=== PATIENT | female | born 1935 | race Caucasian/White ===

== ENCOUNTER 2017-04-10 08:10 | Outpatient (CLI) | payer MEDICARE ==
--- NOTE | 2017-04-14 15:43 | MMO ---
MAMMOGRAM DIGITAL SCREENING BILATERAL: DATE: 04/10/17 HISTORY: 81-year-old female for routine bilateral screening mammogram. COMPARISON: 03/10/14, 03/23/15, and 03/29/16. TECHNIQUE: Digital mammographic views. Computer-aided detection (CAD) utilized. FINDINGS: There are scattered areas of fibroglandular density. There is no evidence of suspicious mass, suspicious calcifications, or architectural distortion. The re is no significant interval change since the prior mammogram. IMPRESSION: 1. BIRADS 1 - Negative. 2. Recommendation: routine bilateral annual screening mammogram (unless the patient develops suspici ous clinical findings that would warrant earlier imaging follow up). yvonne [] POS: [facility]
== END 2017-04-10 08:11 | disposition home or self-care (01) ==
LOC: SCSMAMMO 08:10
PROVIDERS: ATTEND Family Medicine
DX: Z12.31 Encounter for screening mammogram for malignant neoplasm of breast (principal)
CPT/HCPCS: 77067

== ENCOUNTER 2018-04-22 07:54 | Outpatient (CLI) | payer MEDICARE | END 2018-04-22 07:55 | disposition home or self-care (01) | LOC: BICMAMMO 07:54 | PROVIDERS: ATTEND Family Medicine | DX: Z12.31 Encounter for screening mammogram for malignant neoplasm of breast (principal) | CPT/HCPCS: 77063; 77067 ==

== ENCOUNTER 2018-05-29 08:20 | Outpatient (CLI) | payer MEDICARE ==
--- NOTE | 2018-05-29 10:05 | CT ---
CT ABDOMEN AND PELVIS WITH AND WITHOUT IV CONTRAST: Date: 05-29-18 History: Hematuria. Comparison: None available. FINDINGS: The lung bases are clear. Post-surgical changes related to cholecystectomy are noted. There is an exophytic 3.9 cm fluid attenuation cystic lesion anterior aspect mid portion left kidney compatible with a cyst. The kidneys otherwise have a normal CT appearance bilaterally. No enhancing r enal mass is seen. No renal or ureteral calculi are seen bilaterally and there is no hydronephrosis p resent. The urinary bladder is incompletely distended. However, there is suggestion of increased density mass and on the delayed phase of imaging this area demonstrates lower attenuation in relation to the carlee cent contrast and is concerning for a urinary bladder mass along the right posterolateral urinary brendon dder wall. This mass measures 1.7 cm craniocaudal by 1.1 cm transverse by 1.1 cm AP. The liver, spleen, pancreas, bilateral adrenal glands, uterus and adnexal structures demonstrate a no rmal CT appearance for the patient's age. Pessary device is seen within the vagina. There is colonic diverticulosis. Midline scarring of the abdomen is present. Degenerative changes are noted in the spine. No lytic or sclerotic osseous lesions are seen. IMPRESSION: 1. Urinary bladder mass. Urology consultation and direct visualization is recommended for further kalli luation. 2. Left renal cyst. 3. No renal or ureteral calculi. 4. Small hiatal hernia. 5. Cholecystectomy. 6. Colonic diverticulosis. Code T POS: [facility]
== END 2018-05-29 08:21 | disposition home or self-care (01) ==
LOC: SCSCT 08:20
PROVIDERS: ATTEND Family Medicine
DX: R31.0 Gross hematuria (principal); N32.9 Bladder disorder, unspecified; N28.1 Cyst of kidney, acquired; K44.9 Diaphragmatic hernia without obstruction or gangrene; K57.30 Diverticulosis of large intestine without perforation or abscess without bleeding; Z90.49 Acquired absence of other specified parts of digestive tract
CPT/HCPCS: 74178; 82565

== ENCOUNTER 2018-08-04 05:58 | Outpatient (CLI) | payer MEDICARE ==
[2018-08-04 09:13] LABS: #Lymphocytes 2.1 thou/uL (1.20-3.40); Mean Corpuscular HGB CONC 34.2 g/dL (32.0-36.0)
[2018-08-04 09:23] LABS: Calc. Creatinine Clearance 0 mL/min (70-130); Potassium 4.3 mmol/L (3.5-5.1)
[2018-08-04 10:02] LABS: Red Blood Cell (RBC) Count 4.72 mill/uL (4.20-5.40); White Blood Cell (WBC) Count 6.9 thou/uL (4.8-10.8)
[2018-08-04 10:03] LABS: Hemoglobin 14.4 g/dL (12.0-16.0); Mean Corpuscular Volume 94.6 fL (78.0-98.0)
[2018-08-04 10:04] LABS: Mean Corpuscular Hemoglobin 30.5 pg (27.0-31.0); Platelet Count 172 thou/uL (130-400); RBC Distribution Width 12.8 % (11.5-14.5)
[2018-08-04 10:05] LABS: %Neutrophils 55.2 % (42.0-75.0)
[2018-08-04 10:06] LABS: %Basophils 1.6 % (0.0-1.0); %Eosinophils 2.6 % (0.0-10.0); %Monocytes 10.7 % (0.0-10.0)
[2018-08-04 10:07] LABS: #Basophils 0.1 thou/uL (0.0-0.2); #Eosinphils 0.2 thou/uL (0.0-0.7); #Monocytes 0.7 thou/uL (0.11-0.59); #Neutrophils 3.8 thou/uL (1.40-6.50)
[2018-08-04 10:17] LABS: PTT 27.4 SEC (22.9-36.1); Prothrombin Time 13.1 SEC (12.0-14.7)
[2018-08-04 10:20] LABS: Anion Gap 15 mmol/L (10-20); BUN (Urea Nitrogen) 30 mg/dL (9.8-20.1); Carbon Dioxide 25 mmol/L (23-31); Chloride 104 mmol/L (98-107); Sodium 140 mmol/L (136-145)
[2018-08-04 10:21] LABS: Estimated GFR-MDRD 44; Glucose 144 mg/dL (83-110)
[2018-08-04 10:23] LABS: Clarity CLEAR (Clear)
[2018-08-04 10:24] LABS: Leukocyte Trace (Negative); Nitrite Negative (Negative); Protein, Urine (Dipstick) Negative (Neg-Trace)
[2018-08-04 10:25] LABS: Bilirubin Negative (Negative); Blood, Urine Moderate (Negative); Glucose, Urine (Dipstick) Negative (Negative); Urobilinogen 0.2 mg/dL (0.2-1.0)
[2018-08-04 10:35] LABS: RBC/HPF 0-3 HPF (0-3)
[2018-08-04 10:36] LABS: Bacteria/HPF 2+ HPF (None Seen); Squamous Epithelial 0-3 HPF (0-3)
[2018-08-04 10:37] LABS: Hyaline Casts/LPF 0-3 HYALINE CAST LPF (0-3 Hyaline)
--- NOTE | 2018-08-04 16:54 | EKG ---
Test Reason : Blood Pressure : / mmHG Vent. Rate : 083 BPM Atrial Rate : 083 BPM P-R Int : 208 ms QRS Dur : 076 ms QT Int : 352 ms P-R-T Axes : 056 052 029 degrees QTc Int : 413 ms Normal sinus rhythm Low voltage QRS Cannot rule out Anterior infarct , age undetermined Abnormal ECG When compared with ECG of 27-DEC-1992 14:13, Minimal criteria for Anterior infarct are now Present Confirmed by DR. Cinda CHIN (3) on 08/04/2018 4:53:35 PM Referred By: YENNIFER Confirmed By:DR. Cinda CHIN
== END 2018-08-04 05:59 | disposition home or self-care (01) ==
LOC: LABBT 05:58
PROVIDERS: ATTEND Urology
DX: Z01.818 Encounter for other preprocedural examination (principal); C67.9 Malignant neoplasm of bladder, unspecified
CPT/HCPCS: 80048; 81001; 85025; 85610; 85730; 87077; 87086; 87186; 93005; 93010

== ENCOUNTER 2018-08-13 07:05 | Day surgery (SDC) | payer MEDICARE ==
[2018-08-04 08:23] VITALS: BMI 31.6
[2018-08-13] MEDS ORDERED: Levofloxacin 500 mg/D5W 100 ml Premix Bag ONE (10:15)
[2018-08-13] MEDS ORDERED: mitoMYcin 40 MG in Water For Injection,Sterile 20 ML I-VESIC SCH (10:30)
[2018-08-13] MEDS ORDERED: Fentanyl 100 MCG/2 ML VIAL ONE (10:42)
[2018-08-13] MEDS ORDERED: Glycopyrrolate 0.2 MG/ML 5 ML SYRINGE ONE (11:53)
--- NOTE | 2018-08-13 18:01 | OP ---
DATE OF PROCEDURE: 08/13/2018 SERVICE: Urology. PREOPERATIVE DIAGNOSIS: Bladder cancer. POSTOPERATIVE DIAGNOSIS: Bladder cancer. PROCEDURE PERFORMED: Transurethral resection of bladder tumor between 2-5 cm. INDICATION FOR PROCEDURE: Ms. Nieto is an 83-year-old white female, who presented with gross hematuria. Cystoscopy demonstrated tumor on the right lateral bladder wall as well as just posterior to the trigone. I discussed resection of the bladder tumor along with placement of postoperative mitomycin-C with all risks and benefits discussed. She has agreed to proceed forward. DESCRIPTION OF PROCEDURE: After identification of armband and verification of consent, the patient was brought back to the operating room, where she underwent general anesthesia with endotracheal intubation and paralysis. She was then placed in dorsal lithotomy position and prepped and draped in usual sterile fashion. After appropriate time-out, a lubricated 26-Mozambican visual obturator resectoscope sheath was placed into the urethra into the bladder. Cystoscopy demonstrated the same tumor along the right lateral bladder wall that had actually grown somewhat as well as a more extensive tumor posterior to the trigone. The ureteral orifices were spared and well away from the tumor. The visual obturator was switched out for the Gyrus bipolar resectoscope bladder loop and resection was started on the lateral bladder wall until the entire tumors had been resected. These were evacuated and sent off for routine pathologic evaluation. An additional swipe was taken of the bladder tumor base and sent off separately as bladder tumor base on the right lateral bladder wall. The tumor posterior to the trigone was more just fine bumps carpeting in a flat lesion that did not necessarily do well with resection as it was too superficial and ended up getting vaporized, so the majority of this which was fulgurated rather than resected. There was minimal specimen to obtain from this section. The entire lesion was fulgurated with a combined resection and fulguration site of approximately 3-4 cm. Upon completion, there was no additional tumor visible. A full cystoscopy was performed and no additional tumors or concerning areas were noted anywhere throughout the bladder. Satisfied that all the tumor was removed, the bladder was then re-evacuated and rinsed out and no additional tumor cells were noted. Both sides had showed excellent hemostasis. The resectoscope was then removed with bladder still partially filled and an 18-Mozambican Mcclellan catheter was placed with ease into the bladder with 10 mL of sterile water placed into the balloon, 40 mg of mitomycin-C in 20 mL of H2O was then instilled into the bladder and the catheter plugged. The patient was then awakened, taken to PACU for recovery in stable condition. COMPLICATIONS: None. ESTIMATED BLOOD LOSS: Minimal. RETAINED TUBES AND DRAINS: 18-Mozambican Mcclellan catheter which will remain in only for the mitomycin-C. DISPOSITION: The patient will go to PACU and keep the mitomycin-C in for 1 hour. The mitomycin will need to be drained out, the catheter removed and the patient be discharged home and follow up with me on outpatient basis. Job ID: [id number]
== END 2018-08-13 18:20 | disposition home or self-care (01) ==
LOC: SDC 07:05
PROVIDERS: ATTEND Urology
PROC: 0T5B8ZZ Destruction of Bladder, Via Natural or Artificial Opening Endoscopic (ICD-10-PCS; principal; 2018-08-13)
DX: C67.2 Malignant neoplasm of lateral wall of bladder (principal); C67.0 Malignant neoplasm of trigone of bladder; I10 Essential (primary) hypertension; E78.5 Hyperlipidemia, unspecified; E11.9 Type 2 diabetes mellitus without complications; Z86.73 Personal history of transient ischemic attack (TIA), and cerebral infarction without residual deficits; Z79.84 Long term (current) use of oral hypoglycemic drugs; Z79.899 Other long term (current) drug therapy
CPT/HCPCS: 51798; 52235; 88305; 88307; J9280; J1956; J3010

== ENCOUNTER 2019-04-23 07:48 | Outpatient (CLI) | payer MEDICARE ==
--- NOTE | 2019-04-23 08:36 | MMO ---
Bilateral MAMMO Bilat Screen [facility]. CLINICAL HISTORY: Patient is 83 years old and is seen for screening. The patient has no family history of breast cancer. The patient has no personal history of cancer. VIEWS: The views performed were: bilateral craniocaudal with tomosynthesis and bilateral mediolateral oblique with tomosynthesis. FILMS COMPARED: The present examination has been compared to prior imaging studies performed at [facility] on 03/10/2014, 03/23/2015, 03/29/2016 and 04/22/2018. This study has been interpreted with the assistance of computer-aided detection. MAMMOGRAM FINDINGS: There are scattered fibroglandular densities. There are stable benign appearing calcifications seen in both breasts. There are also vascular calcifications. There are no suspicious masses, suspicious calcifications, or new areas of architectural distortion. IMPRESSION: THERE IS NO MAMMOGRAPHIC EVIDENCE OF MALIGNANCY. A ROUTINE FOLLOW-UP MAMMOGRAM IN 1 YEAR IS RECOMMENDED. THE RESULTS OF THIS EXAM WERE SENT TO THE PATIENT. ACR BI-RADS Category 2 - Benign finding MAMMOGRAPHY NOTE: 1. A negative mammogram report should not delay a biopsy if a dominant of clinically suspicious mass is present. 2. Approximately 10% to 15% of breast cancers are not detected by mammography. 3. Adenosis and dense breasts may obscure an underlying neoplasm. Reported by: CRYSTAL HARMON MD Electonically Signed: [id number]
== END 2019-04-23 07:49 | disposition home or self-care (01) ==
LOC: BICMAMMO 07:48
PROVIDERS: ATTEND Family Medicine
DX: Z12.31 Encounter for screening mammogram for malignant neoplasm of breast (principal)
CPT/HCPCS: 77063; 77067

== ENCOUNTER 2021-08-21 12:01 | Outpatient (CLI) | payer MEDICARE ==
[2021-08-21 12:40] LABS: Bilirubin Neg (Negative); Blood, Urine Negative (Negative); Clarity Clear (Clear); Glucose, Urine (Dipstick) Normal (Negative); Ketone, Urine Negative (Negative); Leukocyte Negative (Negative); Nitrite Negative (Negative); Protein, Urine (Dipstick) Negative (Neg-Trace); Specific Gravity, Urine 1.015 (1.002-1.036); Urobilinogen Normal mg/dL (Less than 2)
[2021-08-21 12:46] LABS: Bacteria/HPF Rare-Few HPF (None Seen); RBC/HPF 0-3 HPF (0-3); Squamous Epithelial 0-3 HPF (0-3); WBC/HPF 0-3 HPF (0-3)
[2021-08-21 12:48] LABS: Hemoglobin 14.6 g/dL (12.0-15.5); Mean Corpuscular HGB CONC 33.5 g/dL (32.0-36.0); Mean Corpuscular Hemoglobin 30.9 pg (27.0-33.0); Mean Corpuscular Volume 92.2 fl (81.6-98.3); Mean Platelet Volume 11.2 fl (7.4-10.4); Platelet Count 187 10x3/uL (150-450); RBC Distribution Width 13.5 % (11.5-14.5); Red Blood Cell (RBC) Count 4.73 10x6/uL (3.90-5.03); White Blood Cell (WBC) Count 9.5 10x3/uL (3.5-10.5)
[2021-08-21 13:01] LABS: INR-International Normal Ratio 0.9; PTT 23.6 sec (22.0-33.0); Prothrombin Time 10.3 sec (9.5-12.1)
[2021-08-21 13:24] LABS: Anion Gap 19 mmol/L (10-20); BUN (Urea Nitrogen) 22 mg/dL (9.8-20.1); Calc. Creatinine Clearance 0 mL/min (70-130); Carbon Dioxide 22 mmol/L (23-31); Chloride 103 mmol/L (98-107); Glucose 148 mg/dL (83-110); Potassium 3.9 mmol/L (3.5-5.1); Sodium 140 mmol/L (136-145)
[2021-08-21 23:39] LABS: SARS-CoV-2 PCR by NAA Not Detected (NotDetected)
== END 2021-08-21 12:02 | disposition home or self-care (01) ==
LOC: LABBT 12:01
PROVIDERS: ATTEND Urology
DX: Z01.818 Encounter for other preprocedural examination (principal); C67.8 Malignant neoplasm of overlapping sites of bladder; E11.9 Type 2 diabetes mellitus without complications; I10 Essential (primary) hypertension; E78.00 Pure hypercholesterolemia, unspecified; E79.0 Hyperuricemia without signs of inflammatory arthritis and tophaceous disease; Z20.822 Contact with and (suspected) exposure to COVID-19
CPT/HCPCS: 80048; 81001; 85027; 85610; 85730; 87086; 93005; U0003; U0005; 93010

== ENCOUNTER 2021-08-23 08:34 | Day surgery (SDC) | payer MEDICARE ==
[2021-08-22 11:48] VITALS: BMI 29.9
[2021-08-23] MEDS ORDERED: mitoMYcin 40 MG in Sterile Water 20 ML I-VESIC SCH (09:00)
[2021-08-23] MEDS ORDERED: PROPOFOL 200 MG/20 ML VIAL ONE (09:01)
[2021-08-23] MEDS ORDERED: Lidocaine 1% PF 5 ML VIAL ONE (09:01)
[2021-08-23] MEDS ORDERED: Ondansetron PF 4 MG/2 ML Vial ONE (09:01)
[2021-08-23] MEDS ORDERED: fentaNYL Citrate/PF 100 MCG/2 ML SYRINGE ONE (12:43)
[2021-08-23] MEDS ORDERED: B & O ONE (12:52)
[2021-08-23] MEDS ORDERED: Levofloxacin 500 mg/D5W 100 ml Premix Bag ONE (13:04)
[2021-08-23] MEDS ORDERED: Oxybutynin 5 MG TAB ONE (14:08)
[2021-08-23] MEDS ORDERED: Phenazopyridine HCl 100 MG TAB ONE (14:09)
== END 2021-08-23 16:00 | disposition home or self-care (01) ==
LOC: SDC 08:34
PROVIDERS: ATTEND Urology
PROC: 0TBB8ZX Excision of Bladder, Via Natural or Artificial Opening Endoscopic, Diagnostic (ICD-10-PCS; principal; 2021-08-23)
PROC: 3E0K705 Introduction of Other Antineoplastic into Genitourinary Tract, Via Natural or Artificial Opening (ICD-10-PCS; 2021-08-23)
DX: C67.0 Malignant neoplasm of trigone of bladder (principal); E11.9 Type 2 diabetes mellitus without complications; I10 Essential (primary) hypertension; E78.00 Pure hypercholesterolemia, unspecified; E79.0 Hyperuricemia without signs of inflammatory arthritis and tophaceous disease; Z79.84 Long term (current) use of oral hypoglycemic drugs; Z79.899 Other long term (current) drug therapy
CPT/HCPCS: 51720; 52234; J9280; 88305; J1956; J2405; J2704

== ENCOUNTER 2021-11-28 09:19 | Outpatient (CLI) | payer MEDICARE ==
[2021-11-28] MEDS ORDERED: Iopamidol-370 76% 500 ML 1 ML ONE (13:30)
== END 2021-11-28 09:20 | disposition home or self-care (01) ==
LOC: BICCT 09:19
PROVIDERS: ATTEND Urology
DX: C67.8 Malignant neoplasm of overlapping sites of bladder (principal); K44.9 Diaphragmatic hernia without obstruction or gangrene; N28.1 Cyst of kidney, acquired
CPT/HCPCS: 74178; 82565; Q9967

== ENCOUNTER 2022-01-07 11:02 | Outpatient (CLI) | payer MEDICARE ==
[2022-01-07 12:23] LABS: Hemoglobin 13.5 g/dL (12.0-15.5); Mean Corpuscular HGB CONC 34.3 g/dL (32.0-36.0); Mean Corpuscular Hemoglobin 31.8 pg (27.0-33.0); Mean Corpuscular Volume 92.7 fl (81.6-98.3); Platelet Count 178 10x3/uL (150-450); RBC Distribution Width 13.2 % (11.5-14.5); Red Blood Cell (RBC) Count 4.25 10x6/uL (3.90-5.03); White Blood Cell (WBC) Count 9.8 10x3/uL (3.5-10.5)
[2022-01-07 12:26] LABS: Bilirubin Neg (Negative); Blood, Urine Negative (Negative); Clarity Sl. Cloudy (Clear); Glucose, Urine (Dipstick) Normal (Negative); Ketone, Urine Negative (Negative); Leukocyte 100 (Negative); Nitrite Negative (Negative); Protein, Urine (Dipstick) Negative (Neg-Trace); Specific Gravity, Urine 1.015 (1.005-1.030); Urobilinogen Normal mg/dL (Less than 2)
[2022-01-07 12:37] LABS: Anion Gap 17 mmol/L (10-20); BUN (Urea Nitrogen) 21 mg/dL (9.8-20.1); Bacteria/HPF 2+ HPF (None Seen); Calc. Creatinine Clearance 0 mL/min (70-130); Calcium 9.6 mg/dL (7.8-10.44); Carbon Dioxide 24 mmol/L (23-31); Chloride 102 mmol/L (98-107); Estimated GFR 54; Glucose 144 mg/dL (83-110); Potassium 4.1 mmol/L (3.5-5.1); RBC/HPF 0-3 HPF (0-3); Sodium 139 mmol/L (136-145)
[2022-01-07 12:49] LABS: PTT 23.9 sec (22.0-33.0); Prothrombin Time 10.5 sec (9.5-12.1)
== END 2022-01-07 11:03 | disposition home or self-care (01) ==
LOC: LABBT 11:02
PROVIDERS: ATTEND Urology
DX: Z01.818 Encounter for other preprocedural examination (principal); C67.8 Malignant neoplasm of overlapping sites of bladder; I10 Essential (primary) hypertension; E11.9 Type 2 diabetes mellitus without complications; E78.00 Pure hypercholesterolemia, unspecified; E79.0 Hyperuricemia without signs of inflammatory arthritis and tophaceous disease
CPT/HCPCS: 80048; 81001; 85027; 85610; 85730; 87086; 93005; 93010

== ENCOUNTER 2022-01-10 07:39 | Day surgery (SDC) | payer MEDICARE ==
[2022-01-09 09:55] VITALS: BMI 28.3
[~2022-01-10 07:39] MED LIST: mitoMYcin 40 MG in Sterile Water 20 ML I-VESIC SCH
[2022-01-10] MEDS ORDERED: Lidocaine 1% MPF 2 ML VIAL ONE (08:25)
[2022-01-10] MEDS ORDERED: Levofloxacin 500 mg/D5W 100 ml Premix Bag ONE (08:25)
[2022-01-10] MEDS ORDERED: fentaNYL Citrate/PF 100 MCG/2 ML SYRINGE ONE (10:26)
[2022-01-10] MEDS ORDERED: Iopamidol 0 ML ONE (10:28)
[2022-01-10] MEDS ORDERED: B & O ONE (10:30)
[2022-01-10] MEDS ORDERED: PROPOFOL 200 MG/20 ML VIAL ONE (10:49)
[2022-01-10] MEDS ORDERED: Dexamethasone 20 MG/5 ML VIAL ONE (10:49)
[2022-01-10] MEDS ORDERED: Ondansetron PF 4 MG/2 ML Vial ONE (10:49)
== END 2022-01-10 13:35 | disposition home or self-care (01) ==
LOC: SDC 07:39
PROVIDERS: ATTEND Urology
PROC: 0T5C8ZZ Destruction of Bladder Neck, Via Natural or Artificial Opening Endoscopic (ICD-10-PCS; principal; 2022-01-10)
PROC: 0T5B8ZZ Destruction of Bladder, Via Natural or Artificial Opening Endoscopic (ICD-10-PCS; 2022-01-10)
PROC: 3E0K805 Introduction of Other Antineoplastic into Genitourinary Tract, Via Natural or Artificial Opening Endoscopic (ICD-10-PCS; 2022-01-10)
DX: C67.5 Malignant neoplasm of bladder neck (principal); I10 Essential (primary) hypertension; E11.9 Type 2 diabetes mellitus without complications; E78.00 Pure hypercholesterolemia, unspecified; E79.0 Hyperuricemia without signs of inflammatory arthritis and tophaceous disease; Z86.73 Personal history of transient ischemic attack (TIA), and cerebral infarction without residual deficits; Z79.84 Long term (current) use of oral hypoglycemic drugs; Z79.899 Other long term (current) drug therapy
CPT/HCPCS: 51720; 52234; J9280; 88305; J1100; J1956; J2405; J2704; Q9967

== ENCOUNTER 2022-05-03 11:02 | Day surgery (SDC) | payer MEDICARE ==
[2022-05-01 12:43] VITALS: BMI 27.4
[2022-05-03] MEDS ORDERED: Phenylephrine 2.5% Ophth Soln 5 ML BOT ONE (11:24)
== END 2022-05-03 12:25 | disposition home or self-care (01) ==
LOC: SDC 11:02
PROVIDERS: ATTEND Ophthalmology
PROC: 085K3ZZ Destruction of Left Lens, Percutaneous Approach (ICD-10-PCS; principal; 2022-05-03)
PROC: 085J3ZZ Destruction of Right Lens, Percutaneous Approach (ICD-10-PCS; 2022-05-03)
DX: H26.493 Other secondary cataract, bilateral (principal); I10 Essential (primary) hypertension; E11.9 Type 2 diabetes mellitus without complications; Z79.84 Long term (current) use of oral hypoglycemic drugs; Z79.899 Other long term (current) drug therapy

== ENCOUNTER 2023-01-15 11:27 | Outpatient (CLI) | payer MEDICARE ==
[2023-01-15 12:49] LABS: Hematocrit 41.2 % (34.9-44.5); Hemoglobin 13.8 g/dL (12.0-15.5); Mean Corpuscular HGB CONC 33.5 g/dL (32.0-36.0); Mean Corpuscular Hemoglobin 31.3 pg (27.0-33.0); Mean Corpuscular Volume 93.4 fl (81.6-98.3); Mean Platelet Volume 10.9 fl (7.4-10.4); Platelet Count 197 10x3/uL (150-450); RBC Distribution Width 13.2 % (11.5-14.5); Red Blood Cell (RBC) Count 4.41 10x6/uL (3.90-5.03); White Blood Cell (WBC) Count 8.8 10x3/uL (3.5-10.5)
[2023-01-15 13:02] LABS: INR-International Normal Ratio 0.9; PTT 24.5 sec (22.0-33.0); Prothrombin Time 10.2 sec (9.5-12.1)
[2023-01-15 13:03] LABS: Anion Gap 16 mmol/L (10-20); BUN (Urea Nitrogen) 19 mg/dL (9.8-20.1); Calc. Creatinine Clearance 0 mL/min (70-130); Calcium 9.7 mg/dL (7.8-10.44); Carbon Dioxide 23 mmol/L (23-31); Chloride 106 mmol/L (98-107); Estimated GFR 44; Glucose 145 mg/dL (83-110); Potassium 4.1 mmol/L (3.5-5.1); Sodium 141 mmol/L (136-145)
[2023-01-15 13:33] LABS: Bilirubin Neg (Negative); Blood, Urine Negative (Negative); Clarity Slightly Cloudy (Clear); Glucose, Urine (Dipstick) Normal (Negative); Ketone, Urine Negative (Negative); Leukocyte 100 (Negative); Nitrite Negative (Negative); Protein, Urine (Dipstick) Negative (Neg-Trace); Specific Gravity, Urine 1.005 (1.005-1.030); Urobilinogen Normal mg/dL (Less than 2)
[2023-01-15 13:58] LABS: RBC/HPF None Seen HPF (0-3)
[2023-01-15 13:59] LABS: Bacteria/HPF 2+ HPF (None Seen)
== END 2023-01-15 11:28 | disposition home or self-care (01) ==
LOC: LABBT 11:27
PROVIDERS: ATTEND Urology
DX: Z01.812 Encounter for preprocedural laboratory examination (principal); C67.8 Malignant neoplasm of overlapping sites of bladder; E11.9 Type 2 diabetes mellitus without complications; N81.10 Cystocele, unspecified; N39.3 Stress incontinence (female) (male); E78.00 Pure hypercholesterolemia, unspecified; I10 Essential (primary) hypertension; E79.0 Hyperuricemia without signs of inflammatory arthritis and tophaceous disease
CPT/HCPCS: 80048; 81001; 85027; 85610; 85730; 87086

== ENCOUNTER 2023-01-23 10:50 | Day surgery (SDC) | payer MEDICARE ==
[2023-01-15 12:25] VITALS: BMI 28.9
[~2023-01-23 10:50] MED LIST changes: -mitoMYcin 40 MG in Sterile Water 20 ML I-VESIC SCH; +mitoMYcin 40 MG in Water For Injection,Sterile 20 ML I-VESIC SCH; +mitoMYcin 40 MG in Water For Injection,Sterile 20 ML IR SCH
[2023-01-23] MEDS ORDERED: fentaNYL PF 100 MCG/2 ML SYRINGE ONE (13:17)
[2023-01-23] MEDS ORDERED: LevoFLOXacin 500 mg/D5W 100 ML BAG ONE (14:03)
[2023-01-23] MEDS ORDERED: PROPOFOL 200 MG/20 ML VIAL ONE (14:25)
[2023-01-23] MEDS ORDERED: Lidocaine 1% PF 5 ML VIAL ONE (14:25)
[2023-01-23] MEDS ORDERED: Oxybutynin 5 MG TAB ONE (15:17)
[2023-01-23] MEDS ORDERED: Phenazopyridine HCl 100 MG TAB ONE (15:17)
== END 2023-01-23 16:33 | disposition home or self-care (01) ==
LOC: SDC 10:50
PROVIDERS: ATTEND Urology
PROC: 0TBB8ZZ Excision of Bladder, Via Natural or Artificial Opening Endoscopic (ICD-10-PCS; principal; 2023-01-23)
DX: C67.8 Malignant neoplasm of overlapping sites of bladder (principal); N81.10 Cystocele, unspecified; N39.3 Stress incontinence (female) (male); E11.9 Type 2 diabetes mellitus without complications; I10 Essential (primary) hypertension; E79.0 Hyperuricemia without signs of inflammatory arthritis and tophaceous disease; E78.00 Pure hypercholesterolemia, unspecified; E78.5 Hyperlipidemia, unspecified; Z87.19 Personal history of other diseases of the digestive system; Z86.73 Personal history of transient ischemic attack (TIA), and cerebral infarction without residual deficits; Z98.51 Tubal ligation status; Z90.49 Acquired absence of other specified parts of digestive tract; Z90.89 Acquired absence of other organs; Z98.49 Cataract extraction status, unspecified eye; Z79.84 Long term (current) use of oral hypoglycemic drugs; Z79.899 Other long term (current) drug therapy
CPT/HCPCS: 52235; J9280; 88305; A4216; J1956; J2704